=== PATIENT | female | born 1950 | race Two or more races ===

== ENCOUNTER 2024-10-07 16:58 | Emergency (ER) | payer MEDICARE, BC ==
[~2024-10-07] VITALS: Ht 162.6 cm; Wt 75.0 kg
--- NOTE | 2024-10-07 17:21 | ED.PDOC ---
HPI Comments 74y F who presents to the ED for chief complaint of elevated blood pressure - pt states she has history of hypertension and states earlier this AM, she started to have have headache and took double the dose of her blood pressure medications(amlodipine and lisinopril) - pt states she continued to have a headache which she describes as pressure like in nature, constant, rating the pain 8/10, with no associated exacerbating or relieving factors - pt states despite taking her medications, she continued to have symptoms and came to the ED for further evaluation - pt now in the ED, has noted BP of 197/77 and BP of 189/84 after repeat measurement - pt otherwise denies chest pain, shortness of breath, dizziness, diaphoresis, palpitations or any other symptoms - pt is alert and oriented x 4 and able to answer all questions, - pt is active smoker Past medical history: HTN, ESRD, DM, depression, CVA, myasthenia gravis past surgical history: hysterectomy, hernia, cholecystectomy Medications: amlodipine, Plavix, lisinopril, fluoxetine, Allergies: codeine,erythromycin Social history: denies ETOH, endorses tobacco use, denies drug use [place] Hypertension HPI: Poor Historian. REVIEW OF SYSTEMS: CONSTITUTIONAL: Denies acute: fever, diaphoresis, chills, generalized weakness. HEAD: Denies acute:, photophobia Eyes: Denies acute: Double vision, vision loss, eye pain, eye discharge. EARS: Denies acute: tinnitus, hearing loss, ear discharge, ear pain, THROAT: Denies acute: sore throat, swelling, difficulty swallowing , pain with swallowing, change in voice. NECK: Denies acute: neck pain, neck swelling, stiff neck. HEART: Denies acute : chest pain, palpitations, LUNGS: Denies acute: SOB, wheezing, cough, hemoptysis ABDOMEN: Denies acute: abdominal pain, Nausea, Vomiting, diarrhea, melena , hematemesis, hematochezia SKIN: Denies acute: rash, redness, lesions, itchiness. EXTREMITIES: Denies acute: calf pain, numbness, tingling, weakness, denies pain in extremity. Denies acute: Low back pain. Neuro: Denies acute: focal neurological deficit, motor or sensory focal neurological deficit, tremors, seizure like activity, confusion, dizziness, change in mental status, loss of bowel or bladder function, cauda equina like symptoms. : Denies acute: dysuria, hematuria, flank pain, increase in urinary frequency. PSYCH: Denies acute: hallucination, suicidal ideation, homicidal ideation. FEMALE: Denies acute: abnormal vaginal bleeding, foul odor, unusual discharge. PHYSICAL EXAM: General: ---mild-----acute distress, awake and alert. Head: normocephalic, atraumatic. Neck: supple, trachea is midline, no swelling. Throat: Normal phonation. Eyes:, no erythema, no purulent discharge, no proptosis, no icterus. Heart: regular rate, regular rhythm, no significant murmur appreciated. Lungs: no apparent respiratory distress, Able to speak in full sentences. No wheezing, no rhonchi, no crackles. No stridors Clear to auscultation bilaterally. Abdomen: non tender to palpation, non distended, soft, no guarding, no rebound, + bowel sounds. Neuro: Awake, Alert, oriented to name, self, situation, follows commands GCS=15. Speech is normal. Skin: no petechia, no purpura, no cyanosis, non-pale, not jaundice. Lower extremities: --no - Pitting edema no deformity, no focal swelling, no calf TTP. Makes eye contact. moves all four extremities. Face: no apparent facial droop. Ambulating in the ED independently. ED COURSE: At 8:00 p.m. our I spoke with the neurologist on the phone Dr. Cheung who evaluated the patient on tele camera. He recommends admitting the patient for migraine cocktail and headache workup and aspirin and Plavix. He does not think the patient needs neurology consultation. I asked him specifically what she transfer the patient to a place that has neurology in house and they said there was no need to. At 8:50 p.m. The case was discussed with the [facility] ER team (HPI, physical exam, labs and diagnostic tests that were available at the time of disposition, ED course, treatment plan) on the phone. They agreed accept the patient to their facility. Accepting doctor is Dr. DOWLING. Tele neuro recommendation assessment and plan is the following: # Assessment Impression: Migraine vs tia # Plan Thrombolytic/Intervention: NOT IV Thrombolysis or IA Intervention candidate Thrombolytic Exclusion (< 3 hour window): - non-disabling deficit Intraarterial Exclusion: - no large vessel occlusion (LVO) Target Blood Pressure: SBP < 180 Medication: - Plavix 300 mg PO x1 now, then 75 mg daily x 21 days + asa 81mg x 21 days, followed by monotherapy thereafter - migraine cocktail: Toradol 30 mg IV + Benadryl 25 mg IV + antiemetic IV Other: - If patient has any neurological deterioration please call me back immediately - I have discussed my recommendations with the referring provider - would not pursue stroke work-up if MRI is negative Chief Complaint: High Blood Pressure Time Seen by MD: 17:33 Reviewed Notes: Nurses Notes, Allergies Allergies: Coded Allergies: Erythromycin (Verified Allergy, Unknown, 10/07/24) Lamotrigine (Verified Allergy, Unknown, 10/07/24) Information Source: Patient Mode of Arrival: Ambulatory Was a procedure done? Was a procedure done?: No CP Differential Dx Differential Diagnosis: Other (As far as stroke: Stroke: DDX include TIA, TGA, CVA, intracranial bleed/mass/infection, cerebellar ischemia/infarct, carotid stenosis, lacunar infarct, vertebral/carotid artery dissection,, vertebrobasill merlin insufficiency, BPV, encephalopathy, electrolyte abnormality, thyroid disease, hydrocephalus, [place] palsy, multiple sclerosis, hypoglycemia, drug toxicity, cardiac arrhythmia, todds paralysis, seizure.), N/A Differential Diagnosis: Other (DDX include renal disease, thyroid disease, electrolyte abnormality, increased salt intake, medications non-compliance, undiagnosed HTN, Hypertensive crisis, hypertensive urgency., drug toxicity.) X-Ray, Labs, Meds, VS Vital Signs Date Time Temp Pulse Resp B/P (MAP) Pulse Ox O2 Delivery O2 Flow Rate FiO2 10/07/24 21:20 54 18 95 Room Air* 0 21 10/07/24 21:02 126/72 (90) 10/07/24 19:30 98.2 52 12 177/66 (103) 100 98.2 10/07/24 19:15 171/69 10/07/24 19:14 52 171/69 10/07/24 18:54 59 10/07/24 18:49 56 15 95 Room Air* 0 21 10/07/24 18:49 98.5 56 15 171/69 (103) 95 98.5 10/07/24 18:42 202/89 10/07/24 18:37 57 16 95 Room Air 10/07/24 18:37 57 16 202/ (126) 95 10/07/24 17:23 59 10/07/24 17:10 98.6 70 18 197/77 (117) 95 98.6 189/84 (119) Lab Test 10/07/24 20:20 10/07/24 18:29 10/07/24 17:39 10/07/24 17:28 Range/Units Troponin I High Sensitivity 15 16 </=34 ng/L Magnesium Level 2.3 1.6-2.6 mg/dL Urine Color Light-yellow Yellow Urine Clarity Turbid H Clear Urine pH 6.0 5.0-9.0 Urine Specific [place] 1.011 1.001-1.035 Urine Protein 2+ H Negative Urine Ketones Negative Negative Urine Blood Negative Negative /uL Urine Nitrite Negative Negative Urine Bilirubin Negative Negative Urine Urobilinogen Normal Negative mg/dL Urine Leukocyte Esterase Negative Negative /uL Urine RBC 10 0 - 4 /hpf Urine Microscopic WBC 14 H 0-5 /HPF Urine Squamous Epithelial Cells Mod <5 /hpf Urine Bacteria Few H None Seen /hpf Urine Glucose Normal Normal mg/dL POC Glucose 131 H 70-106 mg/dl Test 10/07/24 17:21 Range/Units White Blood Count 6.5 4.4-10.8 10^3/uL Red Blood Count 3.30 L 4.0-5.20 10^6/uL Hemoglobin 10.9 L 12.2-16.2 g/dL Hematocrit 32.3 L 36.0-46.0 % Mean Corpuscular Volume 97.8 80.0-100.0 fL Mean Corpuscular Hemoglobin 33.1 H 28.0-32.0 pg Mean Corpuscular Hemoglobin Concent 33.9 32.0-36.0 g/dL Red Cell Distribution Width 17.2 H 11.8-14.3 % Platelet Count 153 140-450 10^3/uL Mean Platelet Volume 9.0 6.9-10.8 fL Neutrophils (%) (Auto) 51.9 37.0-80.0 % Lymphocytes (%) (Auto) 37.1 10.0-50.0 % Monocytes (%) (Auto) 8.2 0.0-12.0 % Eosinophils (%) (Auto) 2.0 0.0-7.0 % Basophils (%) (Auto) 0.8 0.0-2.0 % Neutrophils # (Auto) 3.4 1.6-8.6 10 ^3/uL Lymphocytes # (Auto) 2.4 0.4-5.4 10 ^3/uL Monocytes # (Auto) 0.5 0-1.3 10 ^3/uL Eosinophils # (Auto) 0.1 0-0.8 10 ^3/uL Basophils # (Auto) 0.1 0-0.2 10 ^3/uL Nucleated Red Blood Cells 0.1 % Prothrombin Time 10.9 9.3-11.8 sec Prothrombin Time INR 1.03 0.9-1.15 Activated Partial Thromboplast Time 27.7 24.5-34.5 SEC Sodium Level 140 136-145 mmol/L Potassium Level 4.6 3.5-5.1 mmol/L Chloride Level 112 H 98-107 mmol/L Carbon Dioxide Level 21 20-31 mmol/L Anion Gap 7 5-15 Blood Urea Nitrogen 33 H 9-23 mg/dL Creatinine 2.40 H 0.550-1.02 mg/dL Glomerular Filtration Rate Calc 21 >90 mL/min BUN/Creatinine Ratio 13.8 10.0-20.0 Serum Glucose 131 H 74-106 mg/dL Lactic Acid Level 0.5 0.4-2.0 mmol/L Calcium Level 9.8 8.7-10.4 mg/dL Total Bilirubin 0.2 0.2-1.0 mg/dL Aspartate Amino Transferase (AST) 30 13-40 U/L Alanine Aminotransferase (ALT) 24 7-40 U/L Alkaline Phosphatase 50 46-116 U/L Troponin I High Sensitivity 17 </=34 ng/L B-Type Natriuretic Peptide 340.20 0-100 pg/mL Total Protein 6.7 5.7-8.2 g/dL Albumin 4.4 3.2-4.8 g/dL Current Medications Medications (Trade) Dose Ordered Sig/Sravan Route Start Time Stop Time Status Last Admin Nitroglycerin (Ntrostat Sublingual) 0.4 mg ONCE ONCE SL 10/07/24 17:15 10/07/24 17:16 DC 10/07/24 18:42 Aspirin (Ecotrin Enteric Coated Tablet) 325 mg ONCE ONCE PO 10/07/24 20:15 10/07/24 20:16 DC 10/07/24 21:10 Clopidogrel Bisulfate (Plavix) 300 mg ONCE ONCE PO 10/07/24 20:15 10/07/24 20:16 DC 10/07/24 21:10 Ceftriaxone Sodium 50 ml @ 100 mls/hr ONCE ONCE IV 10/07/24 21:00 10/07/24 21:29 DC 10/07/24 21:11 [place] [address] Ph: [phone] DIAGNOSTIC IMAGING Diagnostic Imaging Report : [id number] Signed PATIENT: IGLESIA RODRIGUEST: [id number] UNIT: [id number] : 1950 LOC: ER ROOM / BED: / AGE / SEX: 74 / F ADM STATUS: REG ER SERVICE [id number] ORDERING PHYSICIAN: MARVA MEHTA DO PROCEDURE(s): HWOCT - HEAD WITHOUT CONTRAST REASON: htn, lr ORDER NUMBER(s): [id number], ACCESSION NUMBER(s): [id number] EXAM: CT HEAD WITHOUT CONTRAST INDICATION: htn, lr TECHNIQUE: CT of the head without intravenous contrast. Radiation Dose Information: CT Dose: CTDI volume is 51.17 mGy. Dose-length product is 820.47 mGy*cm The dose indicators for CT are the volume Computed Tomography (CT) Dose Index (CTDIvol) and the Dose Length Product (DLP), and are measured in units of mGy and mGy-cm, respectively. These indicators are not patient dose, but values generated from the CT scanner acquisition factors. The report includes radiation exposure data for exposures received during this examination. COMPARISON: None FINDINGS: There is no evidence of acute intracranial hemorrhage, extra-axial collection, mass effect, midline shift, herniation or hydrocephalus. The ventricles, sulci and cisterns are age appropriate. The hickey-white differentiation is intact. Patchy periventricular and subcortical white matter hypoattenuation is nonspecific but may be related to small vessel ischemic disease. The visualized paranasal sinuses and mastoid air cells are clear. The surrounding soft tissues and osseous structures are unremarkable. IMPRESSION: 1. No acute intracranial hemorrhage 2. No CT findings of territorial ischemia. 3. No paranasal sinus or mastoid disease. ATED BY: SUSAN OLSON Jr., DO DICTATED DATE/TIME: 10/07/241745 SIGNED BY: SUSAN OLSON Jr., DO SIGNED DATE/TIME: 10/07/241745 CC: [place] [id number] Ph: [phone] DIAGNOSTIC IMAGING Diagnostic Imaging Report : [id number] Signed PATIENT: IGLESIA RODRIGUEST: [id number] UNIT: [id number] : 1950 LOC: ER ROOM / BED: / AGE / SEX: 74 / F ADM STATUS: REG ER SERVICE 05 ORDERING PHYSICIAN: MARVA MEHTA DO PROCEDURE(s): HWOCT - HEAD WITHOUT CONTRAST REASON: R/O STROKE REPEAT DUE TO CHANGE IN STATUS ORDER NUMBER(s): [id number], ACCESSION NUMBER(s): [id number] EXAM: CT HEAD WITHOUT CONTRAST INDICATION: R/O STROKE REPEAT DUE TO CHANGE IN STATUS TECHNIQUE: CT of the head without intravenous contrast. Radiation Dose Information: CT Dose: CTDI volume is 52.27 mGy. Dose-length product is 837.98 mGy*cm The dose indicators for CT are the volume Computed Tomography (CT) Dose Index (CTDIvol) and the Dose Length Product (DLP), and are measured in units of mGy and mGy-cm, respectively. These indicators are not patient dose, but values generated from the CT scanner acquisition factors. The report includes radiation exposure data for exposures received during this examination. COMPARISON: CT HEAD WITHOUT CONTRAST on DOS: 10/07/24 FINDINGS: There is no evidence of acute intracranial hemorrhage, extra-axial collection, mass effect, midline shift, herniation or hydrocephalus. The ventricles, sulci and cisterns are age appropriate. The hickey-white differentiation is intact. Patchy periventricular and subcortical white matter hypoattenuation is nonspecific but may be related to small vessel ischemic disease. The visualized paranasal sinuses and mastoid air cells are clear. The surrounding soft tissues and osseous structures are unremarkable. IMPRESSION: 1. No acute intracranial abnormality. 2. No acute intracranial hemorrhage 3. 11/1999 at 5:26 p.m.. If acute infarct is of clinical concern recommend MRI. Critical findings Critical Result: Stroke Alert no change from CT scan performed 2 hours earlier if acute infarct is of clinical concern recommend MRI. Findings discussed with , at 10/07/2024 07:36 PM, and acknowledged receipt and understanding of the findings. .. ATED BY: SUSAN OLSON Jr., DO DICTATED DATE/TIME: 10/07/241941 SIGNED BY: SUSAN OLSON Jr., DO SIGNED DATE/TIME: 10/07/241941 CC: [place] [address] Ph: [phone] DIAGNOSTIC IMAGING Diagnostic Imaging Report : [id number] Signed PATIENT: JES RODRIGUES: [id number] UNIT: [id number] : 1950 LOC: ER ROOM / BED: / AGE / SEX: 74 / F ADM STATUS: REG ER SERVICE 12 ORDERING PHYSICIAN: MARVA MEHTA DO PROCEDURE(s): CXRP - CHEST PORTABLE REASON: htn, lr ORDER NUMBER(s): [id number], ACCESSION NUMBER(s): [id number] CHEST RADIOGRAPH Indication: htn, lr Technique: Single frontal view of the chest was obtained Comparison: None FINDINGS: Lines and Tubes: None Lungs: No focal consolidation. Pleura: No effusion. No pneumothorax. Cardiomediastinal contours: Unremarkable Bones: No acute osseous abnormality. IMPRESSION: 1. No acute cardiopulmonary disease. ATED BY: SUSAN OLSON Jr., DO DICTATED DATE/TIME: 10/07/241750 SIGNED BY: SUSAN OLSON Jr., DO SIGNED DATE/TIME: 10/07/241750 CC: [place] [address] Ph: [phone] DIAGNOSTIC IMAGING Diagnostic Imaging Report : [id number] Signed PATIENT: LOLIS RODRIGUESCCT: [id number] UNIT: [id number] : 1950 LOC: ER ROOM / BED: / AGE / SEX: 74 / F ADM STATUS: REG ER SERVICE 05 ORDERING PHYSICIAN: MARVA MEHTA DO PROCEDURE(s): HWOCT - HEAD WITHOUT CONTRAST REASON: R/O STROKE REPEAT DUE TO CHANGE IN STATUS ORDER NUMBER(s): [id number], ACCESSION NUMBER(s): [id number] EXAM: CT HEAD WITHOUT CONTRAST INDICATION: R/O STROKE REPEAT DUE TO CHANGE IN STATUS TECHNIQUE: CT of the head without intravenous contrast. Radiation Dose Information: CT Dose: CTDI volume is 52.27 mGy. Dose-length product is 837.98 mGy*cm The dose indicators for CT are the volume Computed Tomography (CT) Dose Index (CTDIvol) and the Dose Length Product (DLP), and are measured in units of mGy and mGy-cm, respectively. These indicators are not patient dose, but values generated from the CT scanner acquisition factors. The report includes radiation exposure data for exposures received during this examination. COMPARISON: CT HEAD WITHOUT CONTRAST on DOS: 10/07/24 FINDINGS: There is no evidence of acute intracranial hemorrhage, extra-axial collection, mass effect, midline shift, herniation or hydrocephalus. The ventricles, sulci and cisterns are age appropriate. The hickey-white differentiation is intact. Patchy periventricular and subcortical white matter hypoattenuation is nonspecific but may be related to small vessel ischemic disease. The visualized paranasal sinuses and mastoid air cells are clear. The surrounding soft tissues and osseous structures are unremarkable. IMPRESSION: 1. No acute intracranial abnormality. 2. No acute intracranial hemorrhage 3. 11/1999 at 5:26 p.m.. If acute infarct is of clinical concern recommend MRI. Critical findings Critical Result: Stroke Alert no change from CT scan performed 2 hours earlier if acute infarct is of clinical concern recommend MRI. Findings discussed with , at 10/07/2024 07:36 PM, and acknowledged receipt and understanding of the findings. .. ATED BY: SUSAN OLSON Jr., DO DICTATED DATE/TIME: 10/07/241941 SIGNED BY: SUSAN OLSON Jr., SIGNED DATE/TIME: 10/07/241941 CC: Time of 1ST Reevaluation: 18:46 (I was just made aware that the patient went outside to talk to her family members and when she returned back to the ER she started having some right-sided weakness leaning towards the right side with the right upper extremity weakness and questionable right facial droop. Code stroke was activated immediately.) Reevaluation 1ST: Worsened Time of 2ND Reevaluation: 19:20 (The case was discussed with the tele neuro team (HPI, physical exam, labs and diagnostic tests that were available at the time of disposition, ED course, treatment plan) on the phone. They said they will evaluate the patient on the tele camera. Patient's creatinine and GFR is elevated. CT angio is held off) Time of 3RD Reevaluation: 19:41 (The radiologist called at this time and said that the repeat CT scan of the head still does not show any bleed.) Patient Education/Counseling: Diagnosis, Treatment Family Education/Counseling: No Family Present Comments Patient presented with the above HPI.--hypertensive urgency and stroke-like symptoms----workup was initiated. patient was found with the above mentioned diagnosis. the following medications were ordered: please refer to order lists of meds and tests obtained by myself Dr. Mehta. Patient ED course and VS have been stabilized. Patient has been reassessed in the ED and remained in a stable condition. Pertinent incidental findings were discussed with the patient and/or family. Patient/family voices understanding and is agreeable with plan. Patient has been observed in the ED adequate length of time to insure improvement/stability. Escalation of care considered: Consideration of escalation to observation or admission After patient returned from CT scan. She stepped out to talk to her family outside the department in a soon as she returned back nurses report that her neurological presentation has changed. She is now having right-sided deficit right facial droop right upper extremity weakness. I immediately evaluated the patient and activated stroke protocol. By that time patient has not received her nitroglycerin for blood pressure control yet. During her stroke-like symptoms her systolic blood pressure was in the 200s. Tele neuro evaluated the patient. Please see their consultation recommendations. Medicine team who evaluated the patient. Patient was transferred to higher level care per medicine team request since we do not have an any neurology in house this weekend. Patient's blood pressure improved significantly without any additional intervention for blood pressure control. Her neurological symptoms have essentially resolved All the reports of any imaging studies that were ordered by myself were reviewed by myself. Departure 1 Departure Time of Disposition: 18:52 Impression: Primary Impression: Hypertensive emergency Additional Impressions: Stroke-like symptoms UTI (urinary tract infection) Disposition: 02 SHORT TERM HOSPITAL Admit to: Tele Condition: Guarded Discharged With: Self Critical Care Note Critical Care Time?: Yes (1 hr-critical care time only) Heart Score Heart Score: Heart Score Response (Comments) Value History Slightly Suspicious 0 EKG Normal 0 Age >65 2 Risk Factors >3 or Hx ASHD 2 Troponin Normal limit 0 Total 4 I personally scribed for MARVA MEHTA DO ([email or web address]) on 10/07/24 at 17:21. Electronically submitted by Viviana Membreno ([facility] I personally scribed for MARVA MEHTA DO ([email or web address]) on 10/07/24 at 17:34. Electronically submitted by Viviana Membreno ([employer] [facility]). I personally scribed for MARVA MEHTA DO ([email or web address]) on 10/07/24 at 17:52. Electronically submitted by Viviana Membreno ([email or web address]). I personally scribed for MARVA MEHTA DO ([email or web address]) on 10/07/24 at 17:52. Electronically submitted by Viviana Membreno ([email or web address]). I personally scribed for MARVA MEHTA DO ([email or web address]) on 10/07/24 at 21:30. Electronically submitted by Viviana Membreno ([employer]). MARVA MEHTA DO Oct 07, 2024 17:21
[2024-10-07 17:35] LABS: Basophils # (auto) 0.1 10 ^3/uL (0-0.2); Basophils % (auto) 0.8 % (0.0-2.0); Eosinophils # (auto) 0.1 10 ^3/uL (0-0.8); Hematocrit 32.3 % (36.0-46.0); Hemoglobin 10.9 g/dL (12.2-16.2); Lymphocytes # (auto) 2.4 10 ^3/uL (0.4-5.4); Lymphocytes % (auto) 37.1 % (10.0-50.0); Mean Corpuscular Hemoglobin 33.1 pg (28.0-32.0); Mean Corpuscular Hgb Conc. 33.9 g/dL (32.0-36.0); Mean Corpuscular Volume 97.8 fL (80.0-100.0); Monocytes # (auto) 0.5 10 ^3/uL (0-1.3); Monocytes % (auto) 8.2 % (0.0-12.0); Neutrophils # (auto) 3.4 10 ^3/uL (1.6-8.6); Neutrophils % (auto) 51.9 % (37.0-80.0); Nucleated Red Blood Cells % 0.1 %; Platelet Count (auto) 153 10^3/uL (140-450); Red Cell Distribution Width 17.2 % (11.8-14.3); White Blood Cell 6.5 10^3/uL (4.4-10.8)
[2024-10-07 17:46] LABS: Alanine Aminotransferase 24 U/L (7-40); Albumin 4.4 g/dL (3.2-4.8); Alkaline Phosphatase 50 U/L (46-116); Anion Gap 7 (5-15); Aspartate Aminotransferase 30 U/L (13-40); BUN/Creatinine Ratio 13.8 (10.0-20.0); Calcium 9.8 mg/dL (8.7-10.4); Carbon Dioxide 21 mmol/L (20-31); Potassium 4.6 mmol/L (3.5-5.1); Sodium 140 mmol/L (136-145); Total Protein 6.7 g/dL (5.7-8.2)
[2024-10-07 17:47] LABS: Bilirubin, Total 0.2 mg/dL (0.2-1.0); Blood Urea Nitrogen 33 mg/dL (9-23); Chloride 112 mmol/L (98-107); Glucose 131 mg/dL (74-106)
--- NOTE | 2024-10-07 17:48 | DVH ---
EXAM: CT HEAD WITHOUT CONTRAST INDICATION: htn, lr TECHNIQUE: CT of the head without intravenous contrast. Radiation Dose Information: CT Dose: CTDI volume is 51.17 mGy. Dose-length product is 820.47 mGy*cm The dose indicators for CT are the volume Computed Tomography (CT) Dose Index (CTDIvol) and the Dose Length Product (DLP), and are measured in units of mGy and mGy-cm, respectively. These indicators are not patient dose, but values generated from the CT scanner acquisition factors. The report includes radiation exposure data for exposures received during this examination. COMPARISON: None FINDINGS: There is no evidence of acute intracranial hemorrhage, extra-axial collection, mass effect, midline s hift, herniation or hydrocephalus. The ventricles, sulci and cisterns are age appropriate. The hickey-white differentiation is intact. Patchy periventricular and subcortical white matter hypoattenuation is nonspecific but may be related to small vessel ischemic disease. The visualized paranasal sinuses and mastoid air cells are clear. The surrounding soft tissues and osseous structures are unremarkable. IMPRESSION: 1. No acute intracranial hemorrhage 2. No CT findings of territorial ischemia. 3. No paranasal sinus or mastoid disease.
--- NOTE | 2024-10-07 17:53 | DVH ---
CHEST RADIOGRAPH Indication: htn, lr Technique: Single frontal view of the chest was obtained Comparison: None FINDINGS: Lines and Tubes: None Lungs: No focal consolidation. Pleura: No effusion. No pneumothorax. Cardiomediastinal contours: Unremarkable Bones: No acute osseous abnormality. IMPRESSION: 1. No acute cardiopulmonary disease.
[2024-10-07 18:10] LABS: Urine Bacteria FEW /hpf (None Seen); Urine Blood Negative /uL (Negative); Urine Clarity Turbid (Clear); Urine Color Light-Yellow (Yellow); Urine Protein, UAD 2+ (Negative); Urine Specific Gravity 1.011 (1.001-1.035); Urine Squamous Epithelial Cell MOD /hpf (<5); Urine Urobilinogen Normal (Negative); Urine WBC 14 /HPF (0-5)
[2024-10-07] MEDS: NITROGLYCERIN 0.4 MG SL TAB SL ONE (18:42)
[2024-10-07 18:49] VITALS: PULSE 56; RESP 15; O2SAT 95
[2024-10-07] MEDS: LABETALOL HCL 20 MG/4 ML VL IV ONE (19:14)
--- NOTE | 2024-10-07 19:44 | DVH ---
EXAM: CT HEAD WITHOUT CONTRAST INDICATION: R/O STROKE REPEAT DUE TO CHANGE IN STATUS TECHNIQUE: CT of the head without intravenous contrast. Radiation Dose Information: CT Dose: CTDI volume is 52.27 mGy. Dose-length product is 837.98 mGy*cm The dose indicators for CT are the volume Computed Tomography (CT) Dose Index (CTDIvol) and the Dose Length Product (DLP), and are measured in units of mGy and mGy-cm, respectively. These indicators are not patient dose, but values generated from the CT scanner acquisition factors. The report includes radiation exposure data for exposures received during this examination. COMPARISON: CT HEAD WITHOUT CONTRAST on DOS: 10/07/24 FINDINGS: There is no evidence of acute intracranial hemorrhage, extra-axial collection, mass effect, midline s hift, herniation or hydrocephalus. The ventricles, sulci and cisterns are age appropriate. The hickey-white differentiation is intact. Patchy periventricular and subcortical white matter hypoattenuation is nonspecific but may be related to small vessel ischemic disease. The visualized paranasal sinuses and mastoid air cells are clear. The surrounding soft tissues and osseous structures are unremarkable. IMPRESSION: 1. No acute intracranial abnormality. 2. No acute intracranial hemorrhage 3. 11/1999 25 at 5:26 p.m.. If acute infarct is of clinical concern recommend MRI. Critical findings Critical Result: Stroke Alert no change from CT scan performed 2 hours earlier if acute infarct is of clinical concern recommend MRI. Findings discussed with , at 10/07/2024 07:36 PM, and acknowledged receipt and understanding of the f indings. ..
[2024-10-07 19:49] LABS: INR 1.03 (0.9-1.15); Partial Thromboplastin Time 27.7 SEC (24.5-34.5); Prothrombin Time 10.9 sec (9.3-11.8)
--- NOTE | 2024-10-07 19:57 | BSKYNEURO ---
[facility] [place] Note # Demographics Consult Type: Acute Stroke Level 1 (0-4.5 hrs) Patient Location: Emergency Room First Name: SAMANTHA Last Name: ARY Date of : 1950 Age: 74 Gender: Female Facility: [facility] Time of Initial Page (): 10/07/2024 18:53 Time of Return Call (): 10/07/2024 18:53 # HPI History: Here for HTN all day. Has a headache. Now has right sided weakness. Last Known Normal: 1700 pst Duration: - improving # Scores Time of exam and NIHSS (): 10/07/2024 19:50 Level of Consciousness 1a: [0] = Alert; keenly responsive LOC Questions 1b: [0] = Answers both questions correctly LOC Commands 1c: [0] = Performs both tasks correctly Best Gaze 2: [0] = Normal Visual 3: [0] = No visual loss Facial Palsy 4: [0] = Normal symmetrical movements Motor Arm Left 5a: [0] = No drift Motor Arm Right 5b: [0] = No drift Motor Leg Left 6a: [0] = No drift Motor Leg Right 6b: [0] = No drift Limb Ataxia 7: [0] = Absent Sensory 8: [0] = Normal Best Language 9: [0] = No aphasia Dysarthria 10: [0] = Normal Extinction and Inattention 11: [0] = No abnormality NIHSS Total: 0 # Exam Additional Neurologic Exam: 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 # Data Head CT: - no bleed - per radiologist read CTA Head: - no large vessel occlusion - per radiologist read # Assessment Impression: Migraine vs tia # Plan Thrombolytic/Intervention: NOT IV Thrombolysis or IA Intervention candidate Thrombolytic Exclusion (< 3 hour window): - non-disabling deficit Intraarterial Exclusion: - no large vessel occlusion (LVO) Target Blood Pressure: SBP < 180 Medication: - Plavix 300 mg PO x1 now, then 75 mg daily x 21 days + asa 81mg x 21 days, followed by monotherapy thereafter - migraine cocktail: Toradol 30 mg IV + Benadryl 25 mg IV + antiemetic IV Other: - If patient has any neurological deterioration please call me back immediately - I have discussed my recommendations with the referring provider - would not pursue stroke work-up if MRI is negative # Logistics Attestation of consult completion: The patient is located at: [facility]. Facility staff participated in the visit. I performed this telemedicine visit from my offsite office utilizing interactive 2 way audio and visual telecommunication technology. Total time spent in telemedicine encounter: I spent 21 minutes reviewing clinical data and/or imaging, obtaining history, examining the patient, communicating with the onsite care team, and in preparation of this report. Critical Care time: 21 minutes of this encounter were critical care time. Due to a high probability of clinically significant, life-threatening neurologic deterioration, the patient required my highest level of preparedness to intervene emergently. I spent this critical care time managing the patient in conjunction with on-site providers who requested my consultation. In addition to the above, this critical care time included recommendation and review of studies, including imaging; arranging an urgent treatment and management plan with on-site providers; evaluation of patient's response to treatment; and documentation. This critical care time was performed to assess and manage the high probability of imminent, life-threatening deterioration that could result in neurologic catastrophe. # Demographics First Name: SAMANTHA Last Name: ARY Facility: [facility] Electronically signed at 10/07/2024 19:56 ([place] Time) by Eddy Bañuelos MD Yes JOANA BAÑUELOS MD Oct 07, 2024 19:56
[2024-10-07] MEDS: ASPirin-EC 325mg tab PO ONE (21:10)
[2024-10-07] MEDS: CLOPIDOGREL BISULFATE 75 MG TAB PO ONE (21:10)
[2024-10-07] MEDS: cefTRIAXone 1GM/50ML D5W 50 ML IV ONE (21:11)
[2024-10-07 21:20] VITALS: PULSE 54; RESP 18; O2SAT 95
[2024-10-07 22:35] VITALS: BP 158/74; PULSE 52; RESP 18; TEMP 98.1; O2SAT 99
--- NOTE | 2024-10-09 07:22 | ECG ---
[facility] Test Date: 2024-10-07 Test Time: 17:23:57 Pat Name: SAMANTHA RODRIGUES Department: ER Room: Gender: F Application Systems Engineer: DILLON : 1950 Requested By: MARVA MEHTA Order Number: [id number] Reading MD: Augusto Hogue Measurements Intervals [place] Rate: 59 P: 22 VA: 170 QRS: -8 QRSD: 93 T: 65 QT: 456 QTc: 452 Interpretive Statements Sinus rhythm Probable left atrial enlargement Anteroseptal infarct, age indeterminate Electronically Signed On 10-11-2024 14:14:08 PDT by Augusto Hogue Please click the below link to view image of tracing.
== END 2024-10-07 23:02 | disposition short-term general hospital (02) ==
LOC: ER 17:03
DX: I16.1 Hypertensive emergency (principal); N39.0 Urinary tract infection, site not specified; I12.0 Hypertensive chronic kidney disease with stage 5 chronic kidney disease or end stage renal disease; E11.22 Type 2 diabetes mellitus with diabetic chronic kidney disease; N18.6 End stage renal disease; F17.200 Nicotine dependence, unspecified, uncomplicated; Z90.49 Acquired absence of other specified parts of digestive tract; Z90.710 Acquired absence of both cervix and uterus; Z88.1 Allergy status to other antibiotic agents; Z88.5 Allergy status to narcotic agent
CPT/HCPCS: 36415; 70450; 71045; 80053; 81001; 82947; 83605; 83735; 83880; 84484; 85025; 85610; 85730; 93005; 96365; 99285; J0696; 82962